=== PATIENT | female | born 1985 | race Caucasian/White ===

== ENCOUNTER 2017-09-01 09:12 | Inpatient (IN) | payer OTHER ==
[2017-09-02] MEDS ORDERED: Diphenoxylate HCl/Atropine Tablet PO PRN (00:57)
[2017-09-02] MEDS ORDERED: LR 500 ML/Oxytocin 10 units 500 ML IV SCH (00:57)
[2017-09-02] MEDS ORDERED: Zolpidem Tartrate 5 MG TAB PO PRN (00:57)
[2017-09-02] MEDS ORDERED: Ondansetron HCl/PF 4 MG/2 ML Vial IVP PRN ×3 (00:57→12:06)
[2017-09-02] MEDS ORDERED: Carboprost 250 MCG/ML AMP IM PRN (00:57)
[2017-09-02] MEDS ORDERED: Misoprostol 200 MCG TAB PR PRN (00:57)
[2017-09-02] MEDS ORDERED: Promethazine HCl 25 MG/ML VIAL IM PRN ×3 (00:57→12:06)
[2017-09-02] MEDS ORDERED: Methylergonovine 0.2 MG/ML VIAL IM PRN (00:57)
[2017-09-02] MEDS ORDERED: Lidocaine 1% (PF) 30 ML VIAL SC PRN (00:57)
[2017-09-02] MEDS ORDERED: Acetaminophen 500 MG TAB PO PRN (00:57)
[2017-09-02] MEDS ORDERED: Ibuprofen 800 MG TAB PO PRN (00:57)
[2017-09-02] MEDS ORDERED: LR / Pitocin 40 units/1000 ml 1,000 ML IV PRN (00:57)
[2017-09-02 01:13] VITALS: BMI 27.9
[2017-09-02] MEDS: Lactated Ringer's 1,000 ML IV SCH ×2 (01:20→05:32)
[2017-09-02 01:32] LABS: Hemoglobin 12.7 g/dL (12.0-16.0); Mean Corpuscular Hemoglobin 31.2 pg (27.0-31.0); Mean Corpuscular Volume 86.8 fl (81.0-99.0); Mean Platelet Volume 7.1 fL (7.4-10.4); Platelet Count 185 thou/uL (130-400); RBC Distribution Width 12.7 % (11.5-14.5); Red Blood Cell (RBC) Count 4.05 mill/uL (4.20-5.40); White Blood Cell (WBC) Count 11.1 thou/uL (4.8-10.8)
[2017-09-02] MEDS: Misoprostol 100 MCG TAB VAG SCH ×2 (02:10→15:25)
[2017-09-02 02:11] LABS: Hep B Surf Ag Non-Reactive S/CO (NonReactive)
[2017-09-02] MEDS ORDERED: Fentanyl 4 mcg/Marc 0.1% Cadd 100 ML ONE (05:14)
[2017-09-02] MEDS ORDERED: Communication Order-Pharmacy FS SCH (05:45)
[2017-09-02] MEDS ORDERED: Fentanyl 4mcg/Marcaine 0.1% Cassette 100 ML EPIDURAL SCH (05:45)
[2017-09-02] MEDS ORDERED: ePHEDrine/0.9% NaCl/PF SYRINGE 50 mg/10 ml SLOW IVP PRN (05:45)
[2017-09-02] MEDS ORDERED: Eucerin (Mineral Oil/Petrolatum,White) 30 gm Jar TOP PRN (05:45)
[2017-09-02] MEDS ORDERED: Lactated Ringer's 500 ML IV PRN (05:45)
[2017-09-02] MEDS ORDERED: diphenhydrAMINE 50 MG/ML VIAL IVP PRN (05:45)
[2017-09-02] MEDS ORDERED: Acetaminophen 325 MG TAB PO PRN (05:45)
[2017-09-02] MEDS ORDERED: Naloxone HCl 0.4 mg/ml Vial IVP PRN ×2 (05:45)
[2017-09-02 06:20] LABS: Syphilis Antibody Nonreactive (Nonreactive); Syphilis Antibody Index 0.04 S/CO (<1.00 Non-Reactive)
--- NOTE | 2017-09-02 07:52 | PDOC.LDHP ---
Labor and Delivery H&P Chief complaint: scheduled induction HPI: 32yo at 40w4d by LMP c/w 14w sono here for postdate IOL. Received 1 dose cytotec 25mcg pv overnight. Working epidural in place. Good FM. No LOF. Light vag bleeding over night since cytotec. Current gestational age (weeks): 40 Due date: 08/29/17 Dating criteria: last menstrual period Grav: 1 Para: 0 Current complications: other (chronic opiod use, in remission, on subutex.) Abnormal US findings: No Past Medical History: hx opioid and xanax addiction, in remission, on chronic subutex Generalized anxiety, on zoloft, in counseling Current medications: pre- vitamins, other (zoloft 50mg, subutex) Previous surgical history: other (wisdom and tonsills) Allergies/Adverse Reactions: Allergies Allergy/AdvReac Type Severity Reaction Status Date / Time No Allergy Information Allergy Verified 09/02/17 01:11 Available Social history: none - Physical Exam Vital signs reviewed and normal: yes General: NAD Heart: RRR Lungs: CTAB Abdomen: gravid Extremeties: no edema FHT: category 1 [place] contractions every: q2-3min - Vaginal Exam cm dilated: 4 Effacement: 50% Station: -2 (AROM clear, minimal vag bleeding with check) - OB Labs Blood type: A RH: negative Antibody Screen: positive HIV: negative RPR: negative HEPSAg: negative 1 hour GCT: negative GBS: negative Rubella: immune - Assessment L&D Assessment: medically indicated induction - Plan Plan: admit to L&D, labor augmentation if indicated, informed consent obtained, anesthesia consult for pain management
[2017-09-02] MEDS ORDERED: Lidocaine 1% (PF) 30 ML VIAL ONE (10:08)
[2017-09-02] MEDS ORDERED: LR / Pitocin 40 units/1000 ml 1,000 ML ONE (10:08)
--- NOTE | 2017-09-02 11:31 | PDOC.OPDEL ---
OB Operative/Delivery Note Delivery Dr/Surgeon: Cat Assist: n/a Pre-Delivery Diagnosis: medically indicated induction Procedure/Post Delivery Dx: spontaneous vaginal delivery Weeks gestation: 40 Anesthesia: epidural - Findings A Sex: male Weight: 7 lb 4 oz - 1 min: 8 - 5 min: 9 - Additional Findings/Plan Placenta delivered: spontaneous Repaired Obstetrical Laceration: 1st degree (repaired with 2-0 vicryl hemostasis noted) Estimated blood loss: 200 Compilations/Other Findings: NC x 1 reduced at perineum Post delivery plan: routine recovery
[2017-09-02] MEDS ORDERED: LR / Pitocin 40 units/1000 ml 1,000 ML IV SCH (12:06)
[2017-09-02] MEDS ORDERED: Milk Of Magnesia 30 ML UDCUP PO PRN (12:06)
[2017-09-02] MEDS ORDERED: Bisacodyl 10 MG SUPP PR PRN (12:06)
[2017-09-02] MEDS ORDERED: diphenhydrAMINE 25 MG CAP PO PRN (12:06)
[2017-09-02] MEDS ORDERED: Lanolin Ointment 7 GM TUBE TOP PRN (12:06)
[2017-09-02] MEDS ORDERED: Preparation H Ointment 28 GM TUBE PR PRN (12:06)
[2017-09-02] MEDS ORDERED: traMADol HCl 50 MG TAB PO PRN ×2 (12:06)
[2017-09-02] MEDS ORDERED: Benzocaine/Menthol 20-0.5% 60 ML CAN TOP PRN (12:06)
[2017-09-02] MEDS: Ibuprofen 800 MG TAB PO SCH ×2 (14:53→21:50)
[2017-09-02] MEDS: Ferrous Sulfate 325 MG TAB PO SCH (15:33)
[2017-09-02] MEDS: Docusate Calcium (SURFAK) 240 MG CAP PO SCH (21:50)
[2017-09-03] MEDS: Ibuprofen 800 MG TAB PO SCH ×3 (05:50→21:34)
--- NOTE | 2017-09-03 07:17 | PDOC.PP ---
Post Progress Note Post Day #: 1 PO intake tolerated: yes Flatus: yes Ambulation: yes Vital Signs (12 hours) Temp Pulse Resp BP 09/03/17 05:00 97.9 F 91 18 121/82 09/03/17 04:15 97.7 F 92 18 09/03/17 00:39 97.7 F 92 18 121/76 09/02/17 19:35 97.7 F 85 18 129/59 L Weight Weight 168 lb - Physical Examination General: NAD Cardiovascular: RRR Respiratory: non-labored breathing Abdominal: no distention, appropriately TTP Fundus firm & at: umb Extremities: negative homans (B) Skin: no rash Psychiatric: normal affect Result Diagrams: 09/02/17 01:18 Additional Labs: Post Labs Blood Type A NEGATIVE 09/02/17 01:18 Hep Bs Antigen Non-Reactive S/CO (NonReactive) 09/02/17 01:18 (1) Term delivered Code(s): O80 - ENCOUNTER FOR FULL-TERM UNCOMPLICATED DELIVERY Status: Acute - Assessment/Plan VSSAF Doing well, pain controlled on motrin. Hx of remote opioid and xanax abuse on subutex 2-4mg daily. Takes to prevent withdrawal sx. Pt sees Psych in [place] on weekly basis. Will order UDS to r/ o use of other drugs , however we know that opioids will be positive. I do not have concerns about illicit drug use in this patient. Ok to cont this med in house. - enc this as this will decr risk of abstinence syndrome. Tra aware. Rh neg rhogam screening, RImm Cont PP care, home tomorrow.
[2017-09-03] MEDS: Ferrous Sulfate 325 MG TAB PO SCH ×2 (09:11→16:57)
[2017-09-03] MEDS: Docusate Calcium (SURFAK) 240 MG CAP PO SCH ×2 (09:12→21:34)
[2017-09-03] MEDS: Prenatal Vitamin 1 TAB PO SCH (09:13)
[2017-09-03 11:07] LABS: Amphetamine Not Detected (NotDetected); Barbiturates Screen Not Detected (NotDetected); Benzodiazepine Screen Not Detected (NotDetected); Cocaine Metabolite Screen Not Detected (NotDetected); Medtox Control Line Valid? VALID (VALID); Medtox Reader # READER 1; Methadone Not Detected (NotDetected); Methamphetamine Not Detected (NotDetected); Opiate Screen Not Detected (NotDetected); Oxycodone Screen Not Detected (NotDetected); Phencyclidine (PCP) Not Detected (NotDetected); THC/Cannabinoid Screen Not Detected (NotDetected); Tricyclic Screen Not Detected (NotDetected)
[2017-09-03] MEDS: BUPRENORPHINE 8 MG SL SCH ×2 (11:59→16:42)
[2017-09-04] MEDS: Ibuprofen 800 MG TAB PO SCH (04:09)
--- NOTE | 2017-09-04 06:54 | PDOC.PP ---
Post Progress Note Post Day #: 2 Subjective: Doing well. Desires to go home today. has her Subutex at home. PO intake tolerated: yes Flatus: yes Ambulation: yes Vital Signs (12 hours) Temp Pulse Resp BP 09/03/17 20:00 97.9 F 91 16 132/77 Weight Weight 168 lb - Physical Examination General: NAD Cardiovascular: no m/r/g Abdominal: + bowel sounds Extremities: negative homans (B) Psychiatric: A&Ox3, normal affect Result Diagrams: 09/02/17 01:18 Additional Labs: Post Labs Blood Type A NEGATIVE 09/02/17 01:18 Hep Bs Antigen Non-Reactive S/CO (NonReactive) 09/02/17 01:18 (1) Term delivered Code(s): O80 - ENCOUNTER FOR FULL-TERM UNCOMPLICATED DELIVERY Status: Acute - Assessment/Plan Plan: Day 2. Doing well. Stable for discharge today. F/U in 2-4 weeks. Motrin for home med.
--- NOTE | 2017-09-04 06:56 | PDOC.EVN ---
Event Note - Event Note Event Note: DISCHARGE NOTE ADMIT: 09/02/17 Discharge Date: 09/04/17 DX: Vaginal Delivery Patient s/p on 09/02/17. Home with motrin on PPD2.
[2017-09-04 09:05] VITALS: BP 110/65; TEMP 97.6
[2017-09-04] MEDS: Prenatal Vitamin 1 TAB PO SCH (09:31)
[2017-09-04] MEDS: Ferrous Sulfate 325 MG TAB PO SCH (09:31)
[2017-09-04] MEDS: Docusate Calcium (SURFAK) 240 MG CAP PO SCH (09:31)
[2017-09-04] MEDS: BUPRENORPHINE 8 MG SL SCH ×2 (09:32)
== END 2017-09-04 12:45 | disposition home or self-care (01) | DRG 775 ==
LOC: L&D 09-02 00:32 → 3SW 09-02 14:02
PROVIDERS: ADMIT Student in an Organized Health Care Education/Training Program; ATTEND Student in an Organized Health Care Education/Training Program
PROC: 3E0P7VZ Introduction of Hormone into Female Reproductive, Via Natural or Artificial Opening (ICD-10-PCS; principal; 2017-09-02)
PROC: 10E0XZZ Delivery of Products of Conception, External Approach (ICD-10-PCS; 2017-09-02)
PROC: 10907ZC Drainage of Amniotic Fluid, Therapeutic from Products of Conception, Via Natural or Artificial Opening (ICD-10-PCS; 2017-09-02)
PROC: 0HQ9XZZ Repair Perineum Skin, External Approach (ICD-10-PCS; 2017-09-02)
DX: O48.0 Post-term pregnancy (principal); O99.324 Drug use complicating childbirth; O99.344 Other mental disorders complicating childbirth; F11.11 Opioid abuse, in remission; Z37.0 Single live birth; Z3A.40 40 weeks gestation of pregnancy; F41.9 Anxiety disorder, unspecified; O70.0 First degree perineal laceration during delivery; O69.81X0 Labor and delivery complicated by cord around neck, without compression, not applicable or unspecified
CPT/HCPCS: 36415; 51702; 80306; 85027; 86780; 87340; 99285; J0595; J2001; J7120